=== PATIENT | male | born 1990 | race African-American/Black ===

== ENCOUNTER 2018-08-17 17:02 | Emergency (ER) | payer MEDICAID, OTHER ==
[~2018-08-17] VITALS: Ht 162.6 cm; Wt 80.0 kg
[2018-08-17 17:22] VITALS: BP 112/73
== END 2018-08-17 19:30 | disposition left against medical advice (07) ==
LOC: ER 17:02
DX: R51 Headache (principal); Z53.21 Procedure and treatment not carried out due to patient leaving prior to being seen by health care provider

== ENCOUNTER 2019-01-13 14:50 | Emergency (ER) | payer MEDICAID ==
[~2019-01-13] VITALS: Ht 162.6 cm; Wt 73.0 kg
[2019-01-13] MEDS ORDERED: IBUPROFEN 800MG TABLET PO ONE (15:30)
[2019-01-13] MEDS ORDERED: DIAZEPAM 5 MG TABLET PO ONE (15:30)
[2019-01-13] MEDS ORDERED: HYDROCODONE/ACETAMINOPHEN 5/325MG TABLET PO ONE (15:30)
[2019-01-13] MEDS ORDERED: SODIUM CHLORIDE 0.9% 1,000 ML IV ONE (16:53)
[2019-01-13] MEDS ORDERED: ONDANSETRON HCL 4MG/2ML INJ IV ONE (17:00)
[2019-01-13] MEDS ORDERED: MORPHINE SULFATE 4 MG/ML CPJ (NOT FOR IM USE) IV ONE (17:00)
[2019-01-13 18:30] VITALS: BP 136/87
== END 2019-01-13 18:55 | disposition home or self-care (01) ==
LOC: ER 14:50
DX: S02.69XA Fracture of mandible of other specified site, initial encounter for closed fracture (principal); J45.909 Unspecified asthma, uncomplicated; I49.9 Cardiac arrhythmia, unspecified; V49.49XA Driver injured in collision with other motor vehicles in traffic accident, initial encounter; Y93.89 Activity, other specified; Y92.89 Other specified places as the place of occurrence of the external cause; Y99.8 Other external cause status
CPT/HCPCS: 70486; 96374; 96375; 99284; J2270; J2405; J7030

== ENCOUNTER 2019-01-14 17:59 | Emergency (ER) | payer MEDICAID ==
[~2019-01-14] VITALS: Ht 167.6 cm; Wt 77.0 kg
[2019-01-14] MEDS ORDERED: MORPHINE SULFATE 4 MG/ML CPJ (NOT FOR IM USE) IV NR (19:30)
[2019-01-14] MEDS ORDERED: ONDANSETRON HCL 4MG/2ML INJ IV NR (19:30)
[2019-01-14 20:34] VITALS: BP 126/76
== END 2019-01-14 20:34 | disposition home or self-care (01) ==
LOC: ER 17:59
DX: S02.609A Fracture of mandible, unspecified, initial encounter for closed fracture (principal); J45.909 Unspecified asthma, uncomplicated; F17.210 Nicotine dependence, cigarettes, uncomplicated; V89.2XXA Person injured in unspecified motor-vehicle accident, traffic, initial encounter; Y93.89 Activity, other specified; Y92.488 Other paved roadways as the place of occurrence of the external cause
CPT/HCPCS: 96374; 96375; 99283; J2270; J2405; Z7610

== ENCOUNTER 2019-08-16 00:50 | Emergency (ER) | payer MEDICAID, OTHER ==
[2019-08-16 02:17] LABS: BASOPHILS % 1.1 % (0.0-2.0); EOSINOPHILS % 1.9 % (0.0-5.0); HEMATOCRIT. 43.3 % (42.0-52.0); HEMOGLOBIN. 15.1 g/dL (14.0-18.0); LYMPHOCYTES % 39.5 % (20.0-50.0); MEAN CORPUSCULAR HEMOGLOBIN 30.8 pg (28.0-32.0); MEAN CORPUSCULAR VOLUME 88.4 fL (80.0-94.0); MEAN PLATELET VOLUME 6.9 fl (7.4-10.4); MONOCYTES % 9.1 % (2.0-8.0); NEUTROPHILS % 48.4 % (40.0-76.0); PLATELET 269 x1000/uL (130-400); RED CELL DISTRIBUTION WIDTH 13.9 % (11.6-14.6)
[2019-08-16 02:23] LABS: CHLORIDE 111 mEq/L (98-107)
[2019-08-16 05:39] VITALS: BP 112/74
== END 2019-08-16 05:43 | disposition home or self-care (01) ==
LOC: ER 00:50
DX: F41.9 Anxiety disorder, unspecified (principal); R07.89 Other chest pain; J45.909 Unspecified asthma, uncomplicated
CPT/HCPCS: 36415; 71045; 80053; 84484; 85025; 93005; 99284; Z7610